=== PATIENT | male | born 1945 | race Caucasian/White ===

== ENCOUNTER 2021-04-27 12:51 | Observation (INO) ==
[2021-04-27] MEDS ORDERED: Ondansetron 4 MG/2 ML VIAL IVP PRN (15:37)
[2021-04-27] MEDS ORDERED: Naloxone 0.4 MG/ML INJ IVP PRN (15:37)
[2021-04-27] MEDS ORDERED: *HR* HYDROcodone/Acet 5/325 mg TABLET PO PRN ×2 (15:37→16:30)
[2021-04-27] MEDS: 0.9 % Sodium Chloride 1,000 ML IVC SCH (16:03)
[2021-04-27] MEDS: Piperacillin/Tazobactam 3.375 GM in 0.9 % Sodium Chloride Mini Bag 100 ML IVPB SCH ×2 (16:04→16:21)
[2021-04-27] MEDS ORDERED: Acetaminophen 325 MG TABLET PO PRN (16:30)
[2021-04-27] MEDS ORDERED: Sennosides/Docusate Sodium TABLET PO PRN (17:12)
[2021-04-27] MEDS: Apixaban 5 MG TABLET PO SCH (19:32)
[2021-04-28] MEDS: Piperacillin/Tazobactam 3.375 GM in 0.9 % Sodium Chloride Mini Bag 100 ML IVPB SCH ×3 (00:17→15:51)
[2021-04-28 02:05] LABS: Basophils # 0.1 K/mcL (0.0-0.2); Basophils % 0.9 %; Eosinophils # 0.3 K/mcL (0.0-0.6); Eosinophils % 3.5 %; Hematocrit 35.7 % (37.5-50.1); Hemoglobin 11.4 g/dL (12.9-16.9); Immature Granulocytes % 0.5 % (0-4); Lymphocytes # 1.5 K/mcL (0.6-4.6); Lymphocytes % 18.7 %; Mean Corpuscular HGB Conc 31.9 g/dL (31.6-35.5); Mean Corpuscular Hemoglobin 29.8 pg (28.0-33.3); Mean Corpuscular Volume 93.5 fL (83.0-100.0); Mean Platelet Volume 9.1 fL (9.4-12.4); Monocytes # 1.1 K/mcL (0.0-1.3); Monocytes % 13.7 %; Platelet Count 173 K/mcL (140-400); Red Blood Count 3.82 M/mcL (4.19-5.50); Red Cell Distribution Width 15.3 % (11.5-14.5); Segmented Neutrophils % 62.7 %
[2021-04-28 02:23] LABS: BUN/Creatinine Ratio 25 (6-26); Blood Urea Nitrogen 14 mg/dL (8-23); Calcium 8.7 mg/dL (8.6-10.3); Carbon Dioxide 24 mEq/L (23-29); Chloride 105 mEq/L (98-107); Glucose 103 mg/dL (70-105); Magnesium 1.8 mg/dL (1.6-2.6); Osmolality,Calculated 283 (280-300); Phosphorous 2.8 mg/dL (2.7-4.5); Potassium 3.5 mEq/L (3.5-5.1); Sodium 136 mEq/L (136-145); eGFR For African Americans > 60 (> 60); eGFR For Non-African Americans > 60 (> 60)
[2021-04-28] MEDS ORDERED: *HR* Metoprolol 5 MG/5 ML VIAL IVP ONE ×2 (03:05→04:41)
[2021-04-28] MEDS: 0.9 % Sodium Chloride 1,000 ML IVC SCH (05:00)
[2021-04-28] MEDS: Apixaban 5 MG TABLET PO SCH ×2 (07:37→20:34)
[2021-04-28] MEDS: Metoprolol XL (24 HR) Succ 50 MG TAB.ER.24H PO SCH (07:37)
[2021-04-28] MEDS: Finasteride 5 MG TABLET PO SCH (07:37)
[2021-04-29] MEDS: Piperacillin/Tazobactam 3.375 GM in 0.9 % Sodium Chloride Mini Bag 100 ML IVPB SCH ×3 (00:13→15:05)
[2021-04-29 06:16] LABS: Hematocrit 33.6 % (37.5-50.1); Hemoglobin 11.1 g/dL (12.9-16.9); Mean Corpuscular Hemoglobin 30.6 pg (28.0-33.3); Mean Corpuscular Volume 92.6 fL (83.0-100.0); Mean Platelet Volume 9.4 fL (9.4-12.4); Platelet Count 180 K/mcL (140-400); Red Blood Count 3.63 M/mcL (4.19-5.50); Red Cell Distribution Width 15.4 % (11.5-14.5); White Blood Count 7.3 K/mcL (4.3-11.1)
[2021-04-29 06:40] LABS: BUN/Creatinine Ratio 21 (6-26); Blood Urea Nitrogen 14 mg/dL (8-23); Calcium 8.8 mg/dL (8.6-10.3); Carbon Dioxide 26 mEq/L (23-29); Chloride 106 mEq/L (98-107); Glucose 126 mg/dL (70-105); Magnesium 1.8 mg/dL (1.6-2.6); Osmolality,Calculated 286 (280-300); Phosphorous 2.5 mg/dL (2.7-4.5); Potassium 3.5 mEq/L (3.5-5.1); Sodium 137 mEq/L (136-145); eGFR For African Americans > 60 (> 60); eGFR For Non-African Americans > 60 (> 60)
[2021-04-29 06:41] LABS: % Iron Saturation 19 % (20-55); Iron 45 mcg/dL (65-175); Transferrin 169 mg/dL (203-362)
[2021-04-29 06:56] LABS: Ferritin 172 ng/mL (20-250)
[2021-04-29] MEDS ORDERED: Iron Sucrose Complex 400 MG in 0.9 % Sodium Chloride 250 ML IVPB ONE (07:44)
[2021-04-29] MEDS: Apixaban 5 MG TABLET PO SCH ×2 (08:39→20:40)
[2021-04-29] MEDS: Finasteride 5 MG TABLET PO SCH (08:39)
[2021-04-29] MEDS: Metoprolol XL (24 HR) Succ 50 MG TAB.ER.24H PO SCH (08:39)
[2021-04-30] MEDS: Piperacillin/Tazobactam 3.375 GM in 0.9 % Sodium Chloride Mini Bag 100 ML IVPB SCH ×2 (00:38→07:54)
[2021-04-30 02:26] LABS: Hematocrit 32.2 % (37.5-50.1); Hemoglobin 10.3 g/dL (12.9-16.9); Mean Corpuscular Hemoglobin 29.8 pg (28.0-33.3); Mean Corpuscular Volume 93.1 fL (83.0-100.0); Mean Platelet Volume 8.9 fL (9.4-12.4); Platelet Count 162 K/mcL (140-400); Red Blood Count 3.46 M/mcL (4.19-5.50); Red Cell Distribution Width 15.4 % (11.5-14.5); White Blood Count 7.5 K/mcL (4.3-11.1)
[2021-04-30 02:39] LABS: BUN/Creatinine Ratio 19 (6-26); Blood Urea Nitrogen 13 mg/dL (8-23); Calcium 8.5 mg/dL (8.6-10.3); Carbon Dioxide 27 mEq/L (23-29); Chloride 104 mEq/L (98-107); Glucose 118 mg/dL (70-105); Magnesium 1.9 mg/dL (1.6-2.6); Osmolality,Calculated 281 (280-300); Potassium 3.5 mEq/L (3.5-5.1); Sodium 135 mEq/L (136-145); eGFR For African Americans > 60 (> 60); eGFR For Non-African Americans > 60 (> 60)
[2021-04-30] MEDS: Metoprolol XL (24 HR) Succ 50 MG TAB.ER.24H PO SCH (07:55)
[2021-04-30] MEDS: Finasteride 5 MG TABLET PO SCH (07:55)
[2021-04-30] MEDS: Apixaban 5 MG TABLET PO SCH (07:55)
[2021-04-30] MEDS ORDERED: Multivit/Ca/Min/Fe/FA 1 TAB TABLET PO SCH (09:00)
[2021-04-30] MEDS ORDERED: Cyanocobalamin (B-12) 1,000 MCG TABLET PO SCH (09:00)
[2021-04-30] MEDS ORDERED: levoFLOXacin 750 MG TABLET PO SCH (09:00)
[2021-04-30] MEDS: Calcium Gluconate 1gm/50mL 1 GM/50 ML BAG IVPB SCH ×2 (09:43→09:54)
[2021-04-30 10:28] VITALS: BP 102/67
== END 2021-04-30 11:55 ==
LOC: 3ANU → SUATTDRO 15:14
PROVIDERS: ADMIT Internal Medicine; ATTEND Internal Medicine

== ENCOUNTER 2022-08-03 13:44 | Inpatient (IN) ==
[2022-08-03] MEDS ORDERED: Norepinephrine 4 MG/254 ML IV.SOLN IVC SCH (17:30)
[2022-08-03] MEDS ORDERED: Ondansetron 4 MG/2 ML VIAL IVP PRN ×2 (17:46→23:19)
[2022-08-03] MEDS ORDERED: Naloxone 0.4 MG/ML INJ IVP PRN ×2 (17:46→23:19)
[2022-08-03] MEDS ORDERED: Cefepime HCl 2,000 MG in 0.9 % Sodium Chloride 10 ML IVP SCH (17:50)
[2022-08-03] MEDS ORDERED: Iopamidol - 300 100 ML INFUS..BTL ONE (18:20)
[2022-08-03] MEDS ORDERED: *HR* Propofol 200 MG/20 ML VIAL IVP ONE (18:35)
[2022-08-03] MEDS ORDERED: *HR* Rocuronium Bromide 50 MG/5 ML VIAL ONE (18:35)
[2022-08-03] MEDS ORDERED: *HR* Etomidate 40 MG/20 ML VIAL IVP ONE (18:35)
[2022-08-03] MEDS ORDERED: Lidocaine -MPF 1% 5 ML AMPUL ONE (18:35)
[2022-08-03] MEDS ORDERED: Ketamine HCL *QUVA* 50mg (1mL) SYRINGE ONE (19:06)
[2022-08-03 19:10] LABS: Basophils # 0.1 K/mcL (0.0-0.2); Basophils % 0.6 %; Eosinophils # 0.2 K/mcL (0.0-0.6); Eosinophils % 1.8 %; Hematocrit 34.7 % (37.5-50.1); Hemoglobin 11.1 g/dL (12.9-16.9); Immature Granulocytes % 0.7 % (0-4); Lymphocytes # 1.2 K/mcL (0.6-4.6); Lymphocytes % 9.5 %; Mean Corpuscular Volume 96.9 fL (83.0-100.0); Mean Platelet Volume 8.6 fL (9.4-12.4); Monocytes # 0.9 K/mcL (0.0-1.3); Monocytes % 7.1 %; Neutrophils # 10.2 K/mcL (1.6-8.9); Platelet Count 239 K/mcL (140-400); Red Blood Count 3.58 M/mcL (4.19-5.50); Segmented Neutrophils % 80.3 %; White Blood Count 12.7 K/mcL (4.3-11.1)
[2022-08-03] MEDS ORDERED: Albumin Human 5% 12.5 GM/250 ML IV.SOLN ONE (19:13)
[2022-08-03 19:20] LABS: INR 1.8; Prothrombin Time 19.9 Seconds (9.4-12.1)
[2022-08-03 19:31] LABS: Albumin 2.6 g/dL (3.5-5.7); Bilirubin,Direct 0.4 mg/dL (0.0-0.2); Bilirubin,Indirect 0.7 mg/dL (0.0-1.0); Bilirubin,Total 1.1 mg/dL (0.3-1.0); Globulin 2.7 g/dL (2.4-3.5); Magnesium 1.9 mg/dL (1.6-2.6); Phosphorous 2.5 mg/dL (2.7-4.5); Total Protein 5.3 g/dL (6.4-8.9)
[2022-08-03 19:32] LABS: BUN/Creatinine Ratio 24 (6-26); Blood Urea Nitrogen 16 mg/dL (8-23); Calcium 7.5 mg/dL (8.6-10.3); Carbon Dioxide 24 mEq/L (23-29); Chloride 106 mEq/L (98-107); Glucose 89 mg/dL (70-105); Osmolality,Calculated 283 (280-300); Potassium 3.4 mEq/L (3.5-5.1); Sodium 136 mEq/L (136-145)
[2022-08-03] MEDS ORDERED: *HR* HYDROcodone/Acet 5/325 mg TABLET PO ONE ×2 (22:21→23:45)
[2022-08-04] MEDS: Cefepime HCl 2,000 MG in 0.9 % Sodium Chloride 10 ML IVP SCH ×2 (00:11→08:11)
[2022-08-04 05:00] LABS: Basophils % 0.1 %; Hematocrit 33.2 % (37.5-50.1); Hemoglobin 10.3 g/dL (12.9-16.9); Immature Granulocytes % 0.9 % (0-4); Lymphocytes # 0.5 K/mcL (0.6-4.6); Lymphocytes % 3.7 %; Mean Corpuscular Hemoglobin 30.3 pg (28.0-33.3); Mean Corpuscular Volume 97.6 fL (83.0-100.0); Mean Platelet Volume 8.7 fL (9.4-12.4); Monocytes # 0.2 K/mcL (0.0-1.3); Monocytes % 1.5 %; Neutrophils # 12.8 K/mcL (1.6-8.9); Platelet Count 230 K/mcL (140-400); Segmented Neutrophils % 93.8 %; White Blood Count 13.7 K/mcL (4.3-11.1)
[2022-08-04 05:21] LABS: Alanine Aminotransferase 17 Units/L (7-52); Albumin 2.7 g/dL (3.5-5.7); Alkaline Phosphatase 72 Units/L (34-104); Aspartate Amino Transferase 25 Units/L (13-39); BUN/Creatinine Ratio 26 (6-26); Blood Urea Nitrogen 17 mg/dL (8-23); Calcium 7.7 mg/dL (8.6-10.3); Carbon Dioxide 24 mEq/L (23-29); Chloride 107 mEq/L (98-107); Globulin 2.6 g/dL (2.4-3.5); Glucose 117 mg/dL (70-105); Osmolality,Calculated 289 (280-300); Potassium 3.9 mEq/L (3.5-5.1); Sodium 138 mEq/L (136-145); Total Protein 5.3 g/dL (6.4-8.9)
[2022-08-04] MEDS: Norepinephrine 4 MG/254 ML IV.SOLN IVC SCH ×2 (07:29→11:46)
[2022-08-04] MEDS ORDERED: Albumin 25% 25gram/100mL 25 GM/100 ML IV.SOLN IVPB ONE (08:20)
[2022-08-04] MEDS ORDERED: Ondansetron 4 MG/2 ML VIAL IVP PRN (16:02)
[2022-08-04] MEDS ORDERED: Naloxone 0.4 MG/ML INJ IVP PRN (16:02)
[2022-08-05] MEDS ORDERED: 0.9 % Sodium Chloride 500 ML IVC SCH (02:30)
[2022-08-05 04:03] LABS: Hematocrit 29.7 % (37.5-50.1); Hemoglobin 9.4 g/dL (12.9-16.9); Mean Corpuscular HGB Conc 31.6 g/dL (31.6-35.5); Mean Platelet Volume 8.9 fL (9.4-12.4); Platelet Count 204 K/mcL (140-400); Red Blood Count 3.03 M/mcL (4.19-5.50); Red Cell Distribution Width 16.3 % (11.5-14.5); White Blood Count 10.4 K/mcL (4.3-11.1)
[2022-08-05 04:23] LABS: BUN/Creatinine Ratio 25 (6-26); Blood Urea Nitrogen 17 mg/dL (8-23); Carbon Dioxide 25 mEq/L (23-29); Chloride 108 mEq/L (98-107); Glucose 97 mg/dL (70-105); Osmolality,Calculated 287 (280-300); Potassium 3.4 mEq/L (3.5-5.1); Sodium 138 mEq/L (136-145)
[2022-08-05] MEDS: Cefepime HCl 2,000 MG in 0.9 % Sodium Chloride 10 ML IVP SCH (16:12)
[2022-08-05] MEDS ORDERED: Potassium Phosphate 44 MEQ in 0.9 % Sodium Chloride 250 ML IVPB ONE (17:43)
[2022-08-06] MEDS: Cefepime HCl 2,000 MG in 0.9 % Sodium Chloride 10 ML IVP SCH ×3 (00:19→16:34)
[2022-08-06 05:07] LABS: Hematocrit 33.9 % (37.5-50.1); Hemoglobin 10.9 g/dL (12.9-16.9); Mean Corpuscular HGB Conc 32.2 g/dL (31.6-35.5); Mean Corpuscular Hemoglobin 31.1 pg (28.0-33.3); Mean Corpuscular Volume 96.9 fL (83.0-100.0); Platelet Count 230 K/mcL (140-400); Red Cell Distribution Width 16.6 % (11.5-14.5); White Blood Count 8.8 K/mcL (4.3-11.1)
[2022-08-06 05:28] LABS: BUN/Creatinine Ratio 26 (6-26); Blood Urea Nitrogen 14 mg/dL (8-23); Calcium 8.2 mg/dL (8.6-10.3); Carbon Dioxide 23 mEq/L (23-29); Chloride 109 mEq/L (98-107); Glucose 88 mg/dL (70-105); Osmolality,Calculated 288 (280-300); Potassium 4.2 mEq/L (3.5-5.1); Sodium 139 mEq/L (136-145)
[2022-08-06] MEDS: *HR* Digoxin 0.125 MG TABLET PO SCH (07:51)
[2022-08-06] MEDS: *HR* Amiodarone 200 MG TABLET PO SCH (07:52)
[2022-08-06] MEDS: Metoprolol XL (24 HR) Succ 25 MG TAB.ER.24H PO SCH (10:14)
[2022-08-06] MEDS ORDERED: Albumin 25% 25gram/100mL 25 GM/100 ML IV.SOLN IVPB ONE (11:10)
[2022-08-07] MEDS: Cefepime HCl 2,000 MG in 0.9 % Sodium Chloride 10 ML IVP SCH ×4 (00:30→16:44)
[2022-08-07 03:48] LABS: Hemoglobin 9.7 g/dL (12.9-16.9); Mean Corpuscular HGB Conc 31.3 g/dL (31.6-35.5); Mean Corpuscular Hemoglobin 30.7 pg (28.0-33.3); Mean Corpuscular Volume 98.1 fL (83.0-100.0); Mean Platelet Volume 9.1 fL (9.4-12.4); Platelet Count 206 K/mcL (140-400); Red Blood Count 3.16 M/mcL (4.19-5.50); Red Cell Distribution Width 16.6 % (11.5-14.5); White Blood Count 7.2 K/mcL (4.3-11.1)
[2022-08-07 04:08] LABS: BUN/Creatinine Ratio 23 (6-26); Blood Urea Nitrogen 14 mg/dL (8-23); Calcium 8.2 mg/dL (8.6-10.3); Carbon Dioxide 26 mEq/L (23-29); Chloride 110 mEq/L (98-107); Glucose 106 mg/dL (70-105); Magnesium 2.2 mg/dL (1.6-2.6); Osmolality,Calculated 293 (280-300); Phosphorous 1.7 mg/dL (2.7-4.5); Potassium 3.6 mEq/L (3.5-5.1); Sodium 141 mEq/L (136-145)
[2022-08-07] MEDS: Fluconazole 100 MG TABLET PO SCH (07:45)
[2022-08-07] MEDS: *HR* Amiodarone 200 MG TABLET PO SCH (07:45)
[2022-08-07] MEDS: *HR* Digoxin 0.125 MG TABLET PO SCH (07:45)
[2022-08-07] MEDS: Metoprolol XL (24 HR) Succ 25 MG TAB.ER.24H PO SCH (07:45)
[2022-08-07] MEDS: Sennosides/Docusate Sodium TABLET PO PRN (23:18)
[2022-08-08] MEDS: Cefepime HCl 2,000 MG in 0.9 % Sodium Chloride 10 ML IVP SCH ×2 (00:13→08:54)
[2022-08-08 03:15] LABS: Hematocrit 32.6 % (37.5-50.1); Mean Corpuscular HGB Conc 30.7 g/dL (31.6-35.5); Mean Corpuscular Volume 97.9 fL (83.0-100.0); Mean Platelet Volume 9.4 fL (9.4-12.4); Platelet Count 203 K/mcL (140-400); Red Blood Count 3.33 M/mcL (4.19-5.50); Red Cell Distribution Width 16.7 % (11.5-14.5); White Blood Count 8.2 K/mcL (4.3-11.1)
[2022-08-08 03:37] LABS: BUN/Creatinine Ratio 25 (6-26); Blood Urea Nitrogen 15 mg/dL (8-23); Calcium 8.2 mg/dL (8.6-10.3); Carbon Dioxide 27 mEq/L (23-29); Chloride 110 mEq/L (98-107); Glucose 108 mg/dL (70-105); Magnesium 2.2 mg/dL (1.6-2.6); Osmolality,Calculated 293 (280-300); Potassium 3.5 mEq/L (3.5-5.1); Sodium 141 mEq/L (136-145)
[2022-08-08] MEDS: Fluconazole 100 MG TABLET PO SCH (08:56)
[2022-08-08] MEDS: Metoprolol XL (24 HR) Succ 25 MG TAB.ER.24H PO SCH (08:56)
[2022-08-08] MEDS: *HR* Digoxin 0.125 MG TABLET PO SCH (08:56)
[2022-08-08] MEDS: *HR* Amiodarone 200 MG TABLET PO SCH (08:56)
[2022-08-08] MEDS: Sennosides/Docusate Sodium TABLET PO PRN (17:28)
[2022-08-08] MEDS: Cefdinir 300 MG CAPSULE PO SCH (20:54)
[2022-08-09 03:10] LABS: Hematocrit 33.3 % (37.5-50.1); Hemoglobin 10.3 g/dL (12.9-16.9); Mean Corpuscular HGB Conc 30.9 g/dL (31.6-35.5); Mean Corpuscular Hemoglobin 30.8 pg (28.0-33.3); Mean Corpuscular Volume 99.7 fL (83.0-100.0); Mean Platelet Volume 9.4 fL (9.4-12.4); Platelet Count 211 K/mcL (140-400); Red Blood Count 3.34 M/mcL (4.19-5.50); Red Cell Distribution Width 16.7 % (11.5-14.5); White Blood Count 9.2 K/mcL (4.3-11.1)
[2022-08-09 03:27] LABS: BUN/Creatinine Ratio 26 (6-26); Blood Urea Nitrogen 17 mg/dL (8-23); Calcium 8.2 mg/dL (8.6-10.3); Carbon Dioxide 30 mEq/L (23-29); Chloride 108 mEq/L (98-107); Glucose 116 mg/dL (70-105); Magnesium 2.1 mg/dL (1.6-2.6); Osmolality,Calculated 293 (280-300); Phosphorous 2.3 mg/dL (2.7-4.5); Potassium 3.9 mEq/L (3.5-5.1); Sodium 140 mEq/L (136-145)
[2022-08-09] MEDS: Cefdinir 300 MG CAPSULE PO SCH ×2 (08:41→20:42)
[2022-08-09] MEDS: Fluconazole 100 MG TABLET PO SCH (08:41)
[2022-08-09] MEDS: *HR* Amiodarone 200 MG TABLET PO SCH (08:43)
[2022-08-09] MEDS: Metoprolol XL (24 HR) Succ 25 MG TAB.ER.24H PO SCH (08:44)
[2022-08-09] MEDS: *HR* Digoxin 0.125 MG TABLET PO SCH (08:44)
[2022-08-09] MEDS: Sennosides/Docusate Sodium TABLET PO PRN (20:47)
[2022-08-10] MEDS: *HR* Digoxin 0.125 MG TABLET PO SCH (08:24)
[2022-08-10] MEDS: Cefdinir 300 MG CAPSULE PO SCH ×2 (08:24→20:44)
[2022-08-10] MEDS: Fluconazole 100 MG TABLET PO SCH (08:24)
[2022-08-10] MEDS: *HR* Amiodarone 200 MG TABLET PO SCH (08:24)
[2022-08-10] MEDS: Metoprolol XL (24 HR) Succ 25 MG TAB.ER.24H PO SCH (08:25)
[2022-08-10 09:10] LABS: Basophils # 0.1 K/mcL (0.0-0.2); Eosinophils # 0.3 K/mcL (0.0-0.6); Eosinophils % 3.2 %; Hematocrit 33.2 % (37.5-50.1); Hemoglobin 10.6 g/dL (12.9-16.9); Immature Granulocytes % 1.4 % (0-4); Lymphocytes # 1.8 K/mcL (0.6-4.6); Lymphocytes % 21.8 %; Mean Corpuscular HGB Conc 31.9 g/dL (31.6-35.5); Mean Corpuscular Hemoglobin 30.7 pg (28.0-33.3); Mean Corpuscular Volume 96.2 fL (83.0-100.0); Monocytes # 0.7 K/mcL (0.0-1.3); Monocytes % 8.5 %; Neutrophils # 5.4 K/mcL (1.6-8.9); Platelet Count 203 K/mcL (140-400); Red Blood Count 3.45 M/mcL (4.19-5.50); Red Cell Distribution Width 16.8 % (11.5-14.5); Segmented Neutrophils % 64.1 %; White Blood Count 8.4 K/mcL (4.3-11.1)
[2022-08-10 09:29] LABS: BUN/Creatinine Ratio 30 (6-26); Blood Urea Nitrogen 16 mg/dL (8-23); Calcium 8.2 mg/dL (8.6-10.3); Carbon Dioxide 26 mEq/L (23-29); Chloride 108 mEq/L (98-107); Glucose 108 mg/dL (70-105); Osmolality,Calculated 286 (280-300); Potassium 3.5 mEq/L (3.5-5.1); Sodium 137 mEq/L (136-145)
[2022-08-10] MEDS: Simethicone 80 MG TAB.CHEW PO PRN ×2 (10:38→18:19)
[2022-08-11 05:58] LABS: Basophils # 0.1 K/mcL (0.0-0.2); Basophils % 0.7 %; Eosinophils # 0.3 K/mcL (0.0-0.6); Eosinophils % 3.9 %; Hematocrit 32.4 % (37.5-50.1); Hemoglobin 10.1 g/dL (12.9-16.9); Immature Granulocytes % 1.1 % (0-4); Lymphocytes # 1.9 K/mcL (0.6-4.6); Lymphocytes % 25.5 %; Mean Corpuscular HGB Conc 31.2 g/dL (31.6-35.5); Mean Corpuscular Hemoglobin 30.4 pg (28.0-33.3); Mean Corpuscular Volume 97.6 fL (83.0-100.0); Mean Platelet Volume 9.2 fL (9.4-12.4); Monocytes # 0.7 K/mcL (0.0-1.3); Monocytes % 9.9 %; Neutrophils # 4.3 K/mcL (1.6-8.9); Platelet Count 198 K/mcL (140-400); Red Blood Count 3.32 M/mcL (4.19-5.50); Red Cell Distribution Width 16.7 % (11.5-14.5); Segmented Neutrophils % 58.9 %; White Blood Count 7.3 K/mcL (4.3-11.1)
[2022-08-11 06:20] LABS: BUN/Creatinine Ratio 30 (6-26); Blood Urea Nitrogen 16 mg/dL (8-23); Calcium 7.9 mg/dL (8.6-10.3); Carbon Dioxide 30 mEq/L (23-29); Chloride 107 mEq/L (98-107); Glucose 97 mg/dL (70-105); Magnesium 1.9 mg/dL (1.6-2.6); Osmolality,Calculated 287 (280-300); Phosphorous 1.9 mg/dL (2.7-4.5); Potassium 3.5 mEq/L (3.5-5.1); Sodium 138 mEq/L (136-145)
[2022-08-11] MEDS: *HR* Amiodarone 200 MG TABLET PO SCH (08:53)
[2022-08-11] MEDS: Cefdinir 300 MG CAPSULE PO SCH ×2 (08:54→19:37)
[2022-08-11] MEDS: Fluconazole 100 MG TABLET PO SCH (08:54)
[2022-08-11] MEDS: *HR* Digoxin 0.125 MG TABLET PO SCH (08:54)
[2022-08-11] MEDS: Metoprolol XL (24 HR) Succ 25 MG TAB.ER.24H PO SCH (08:55)
[2022-08-11] MEDS: Acetaminophen 325 MG TABLET PO PRN (19:33)
[2022-08-11] MEDS ORDERED: Ringers Solution, Lactated 500 ML IVC ONE (20:44)
[2022-08-12] MEDS: Acetaminophen 325 MG TABLET PO PRN (03:12)
[2022-08-12] MEDS: Cefdinir 300 MG CAPSULE PO SCH ×2 (07:42→20:10)
[2022-08-12] MEDS: Fluconazole 100 MG TABLET PO SCH (07:42)
[2022-08-12] MEDS: *HR* Amiodarone 200 MG TABLET PO SCH (07:42)
[2022-08-12] MEDS: *HR* Digoxin 0.125 MG TABLET PO SCH (09:03)
[2022-08-12 09:12] LABS: Basophils # 0.1 K/mcL (0.0-0.2); Basophils % 0.7 %; Eosinophils # 0.3 K/mcL (0.0-0.6); Eosinophils % 3.6 %; Hematocrit 32.1 % (37.5-50.1); Hemoglobin 10.2 g/dL (12.9-16.9); Immature Granulocytes % 1.4 % (0-4); Lymphocytes # 1.5 K/mcL (0.6-4.6); Lymphocytes % 19.6 %; Mean Corpuscular HGB Conc 31.8 g/dL (31.6-35.5); Mean Corpuscular Hemoglobin 30.9 pg (28.0-33.3); Mean Corpuscular Volume 97.3 fL (83.0-100.0); Mean Platelet Volume 9.3 fL (9.4-12.4); Monocytes # 0.7 K/mcL (0.0-1.3); Monocytes % 9.1 %; Neutrophils # 4.9 K/mcL (1.6-8.9); Platelet Count 193 K/mcL (140-400); Red Cell Distribution Width 16.7 % (11.5-14.5); Segmented Neutrophils % 65.6 %; White Blood Count 7.4 K/mcL (4.3-11.1)
[2022-08-12] MEDS: Metoprolol XL (24 HR) Succ 25 MG TAB.ER.24H PO SCH (09:46)
[2022-08-12 10:05] LABS: BUN/Creatinine Ratio 28 (6-26); Blood Urea Nitrogen 13 mg/dL (8-23); Calcium 7.8 mg/dL (8.6-10.3); Carbon Dioxide 27 mEq/L (23-29); Chloride 106 mEq/L (98-107); Glucose 99 mg/dL (70-105); Magnesium 1.8 mg/dL (1.6-2.6); Osmolality,Calculated 282 (280-300); Phosphorous 2.2 mg/dL (2.7-4.5); Potassium 3.4 mEq/L (3.5-5.1); Sodium 136 mEq/L (136-145)
[2022-08-13 03:15] LABS: Basophils # 0.1 K/mcL (0.0-0.2); Basophils % 0.6 %; Eosinophils # 0.3 K/mcL (0.0-0.6); Eosinophils % 3.2 %; Hematocrit 33.8 % (37.5-50.1); Hemoglobin 10.4 g/dL (12.9-16.9); Lymphocytes # 1.6 K/mcL (0.6-4.6); Lymphocytes % 18.9 %; Mean Corpuscular HGB Conc 30.8 g/dL (31.6-35.5); Mean Corpuscular Hemoglobin 30.2 pg (28.0-33.3); Mean Corpuscular Volume 98.3 fL (83.0-100.0); Mean Platelet Volume 9.5 fL (9.4-12.4); Monocytes # 0.7 K/mcL (0.0-1.3); Monocytes % 8.2 %; Neutrophils # 5.6 K/mcL (1.6-8.9); Platelet Count 206 K/mcL (140-400); Red Blood Count 3.44 M/mcL (4.19-5.50); Red Cell Distribution Width 16.7 % (11.5-14.5); Segmented Neutrophils % 68.1 %; White Blood Count 8.2 K/mcL (4.3-11.1)
[2022-08-13 03:39] LABS: BUN/Creatinine Ratio 23 (6-26); Blood Urea Nitrogen 11 mg/dL (8-23); Calcium 8.2 mg/dL (8.6-10.3); Carbon Dioxide 29 mEq/L (23-29); Chloride 105 mEq/L (98-107); Glucose 89 mg/dL (70-105); Magnesium 1.9 mg/dL (1.6-2.6); Osmolality,Calculated 285 (280-300); Phosphorous 2.3 mg/dL (2.7-4.5); Potassium 4.1 mEq/L (3.5-5.1); Sodium 138 mEq/L (136-145)
[2022-08-13] MEDS: Metoprolol XL (24 HR) Succ 25 MG TAB.ER.24H PO SCH (07:38)
[2022-08-13] MEDS: Fluconazole 100 MG TABLET PO SCH (07:41)
[2022-08-13] MEDS: Cefdinir 300 MG CAPSULE PO SCH ×2 (07:41→20:07)
[2022-08-13] MEDS: *HR* Digoxin 0.125 MG TABLET PO SCH (07:41)
[2022-08-13] MEDS: *HR* Amiodarone 200 MG TABLET PO SCH (07:41)
[2022-08-13] MEDS: Apixaban 5 MG TABLET PO SCH (20:08)
[2022-08-13] MEDS: Acetaminophen 325 MG TABLET PO PRN (20:12)
[2022-08-14 02:54] LABS: Basophils # 0.1 K/mcL (0.0-0.2); Basophils % 0.8 %; Eosinophils # 0.2 K/mcL (0.0-0.6); Eosinophils % 2.9 %; Hematocrit 31.3 % (37.5-50.1); Immature Granulocytes % 1.1 % (0-4); Immature Platelets 1.7 % (1.1-6.1); Lymphocytes # 1.9 K/mcL (0.6-4.6); Mean Corpuscular HGB Conc 31.9 g/dL (31.6-35.5); Mean Corpuscular Hemoglobin 30.3 pg (28.0-33.3); Mean Corpuscular Volume 94.8 fL (83.0-100.0); Mean Platelet Volume 10.2 fL (9.4-12.4); Monocytes # 0.7 K/mcL (0.0-1.3); Monocytes % 9.6 %; Neutrophils # 4.3 K/mcL (1.6-8.9); Platelet Count 204 K/mcL (140-400); Red Cell Distribution Width 16.7 % (11.5-14.5); Segmented Neutrophils % 59.6 %; White Blood Count 7.3 K/mcL (4.3-11.1)
[2022-08-14 03:12] LABS: BUN/Creatinine Ratio 17 (6-26); Blood Urea Nitrogen 9 mg/dL (8-23); Calcium 7.9 mg/dL (8.6-10.3); Carbon Dioxide 27 mEq/L (23-29); Chloride 105 mEq/L (98-107); Glucose 95 mg/dL (70-105); Magnesium 1.8 mg/dL (1.6-2.6); Osmolality,Calculated 284 (280-300); Phosphorous 2.2 mg/dL (2.7-4.5); Potassium 4.2 mEq/L (3.5-5.1); Sodium 138 mEq/L (136-145)
[2022-08-14] MEDS: *HR* Digoxin 0.125 MG TABLET PO SCH (09:08)
[2022-08-14] MEDS: *HR* Amiodarone 200 MG TABLET PO SCH (09:08)
[2022-08-14] MEDS: Apixaban 5 MG TABLET PO SCH ×2 (09:08→21:50)
[2022-08-14] MEDS: Cefdinir 300 MG CAPSULE PO SCH ×2 (09:08→21:50)
[2022-08-14] MEDS: Metoprolol XL (24 HR) Succ 25 MG TAB.ER.24H PO SCH (09:08)
[2022-08-15] MEDS: Acetaminophen 325 MG TABLET PO PRN (01:36)
[2022-08-15 03:34] LABS: Basophils # 0.1 K/mcL (0.0-0.2); Basophils % 0.7 %; Eosinophils # 0.1 K/mcL (0.0-0.6); Eosinophils % 1.6 %; Hematocrit 33.9 % (37.5-50.1); Hemoglobin 10.8 g/dL (12.9-16.9); Immature Granulocytes % 0.8 % (0-4); Lymphocytes # 1.1 K/mcL (0.6-4.6); Lymphocytes % 12.3 %; Mean Corpuscular HGB Conc 31.9 g/dL (31.6-35.5); Mean Corpuscular Hemoglobin 30.9 pg (28.0-33.3); Mean Corpuscular Volume 97.1 fL (83.0-100.0); Mean Platelet Volume 9.5 fL (9.4-12.4); Monocytes # 0.8 K/mcL (0.0-1.3); Neutrophils # 6.6 K/mcL (1.6-8.9); Platelet Count 203 K/mcL (140-400); Red Blood Count 3.49 M/mcL (4.19-5.50); Red Cell Distribution Width 16.7 % (11.5-14.5); Segmented Neutrophils % 75.6 %; White Blood Count 8.8 K/mcL (4.3-11.1)
[2022-08-15 03:54] LABS: BUN/Creatinine Ratio 14 (6-26); Blood Urea Nitrogen 7 mg/dL (8-23); Calcium 8.1 mg/dL (8.6-10.3); Carbon Dioxide 26 mEq/L (23-29); Chloride 104 mEq/L (98-107); Glucose 114 mg/dL (70-105); Magnesium 1.7 mg/dL (1.6-2.6); Osmolality,Calculated 285 (280-300); Phosphorous 2.4 mg/dL (2.7-4.5); Potassium 3.6 mEq/L (3.5-5.1); Sodium 138 mEq/L (136-145)
[2022-08-15 08:09] VITALS: BP 101/65; PULSE 87; TEMP 97.5; O2SAT 92
[2022-08-15] MEDS: Apixaban 5 MG TABLET PO SCH ×2 (08:30→10:40)
[2022-08-15] MEDS: Metoprolol XL (24 HR) Succ 25 MG TAB.ER.24H PO SCH (08:30)
[2022-08-15] MEDS: *HR* Amiodarone 200 MG TABLET PO SCH (08:32)
[2022-08-15] MEDS: *HR* Digoxin 0.125 MG TABLET PO SCH (08:32)
[2022-08-15] MEDS: Cefdinir 300 MG CAPSULE PO SCH (08:32)
[2022-08-15 14:01] LABS: Influenza A PCR Negative (Negative); Influenza B PCR Negative (Negative); Resp. Syncytial Virus PCR Negative (Negative)
[2022-08-15 14:02] LABS: SARS-CoV-2 by PCR (In House) Negative (Negative)
== END 2022-08-15 16:00 | DRG 659 ==
LOC: 2NNU → SUATTDRO 16:34 → ICNU 18:26 → SUATTDRO 08-04 15:54 → 2NENU 08-04 19:09
PROVIDERS: ADMIT Student in an Organized Health Care Education/Training Program; ATTEND Pharmacist